=== PATIENT | female | born 1995 | race Caucasian/White ===

== ENCOUNTER 2025-02-24 10:03 | Emergency (ER) | payer OTHER, SELFPAY ==
--- NOTE | ~2025-02-24 | US_ITS ---
EXAMINATION: US OB <=14 wk fetus w TV DATE: 02/24/2025 13:18 INDICATION: Vaginal bleeding TECHNIQUE: Real-time transabdominal and transvaginal obstetric ultrasound. FINDINGS: No prior studies for comparison. The uterus measures 9.5 x 4.6 x 4.9 cm. There is an intrauterine gestational sac, with pole identified. The crown rump length measures 1 cm, which correlates with a estimated gestational age of 7 weeks 1 day. No heart motions detected. Ovaries within normal limits without significant solid or cystic mass. IMPRESSION: 1. Single intrauterine gestation with crown-rump length measuring 1 cm (approximately 7 weeks). Absence of detectable cardiac activity at this crown-rump length is diagnostic of failure by accepted sonographic criteria. Correlate with clinical history and serial beta hCG levels if needed. Reviewed, dictated and finalized at location O. IMPRESSION: 1. Single intrauterine gestation with crown-rump length measuring 1 cm (approxi mately 7 weeks). Absence of detectable cardiac activity at this crown-rum p length is diagnostic of failure by accepted sonographic criteria. C orrelate with clinical history and serial beta hCG levels if needed.
[2025-02-24 10:16] VITALS: BP 104/68; PULSE 90; RESP 16; TEMP 36.6; O2SAT 100
[2025-02-24 10:33] LABS: Hematocrit 41.9 % (37.0-47.0); Hemoglobin 13.7 g/dL (12.0-15.0); Immature Granulocyte Percent A 0.4 % (0-0.5); Lymphocytes Absolute Auto 1.72 K/mm3 (0.9-3.2); Mean Corpuscular HGB Conc 32.7 g/dl (32-36); Mean Corpuscular Hemoglobin 28.9 pg (26-34); Mean Corpuscular Volume 88.4 fl (80-100); Nucleated Red Blood Cells Absolute Auto 0.000 K/mm3 (0.0-0.012); Nucleated Red Blood Cells Perc 0.0 % (0.0-0.2); Platelet Count Result 299 k/mm3 (150-375); Red Blood Count 4.74 M/mm3 (4.2-5.4); White Blood Count 11.3 K/mm3 (4.5-10.0)
[2025-02-24 10:45] LABS: Alanine Aminotransferase 23 U/L (6-35); Albumin Level 4.8 g/dL (3.5-5.1); Alkaline Phosphatase 73 U/L (38-126); Anion Gap 8 mmol/L (4-12); Aspartate Amino Transferase 29 U/L (14-36); Bilirubin,Total 1.1 mg/dL (0.2-1.3); Blood Urea Nitrogen 7 mg/dL (7-17); Calcium 9.8 mg/dL (8.4-10.2); Carbon Dioxide 25 mmol/L (22-30); Chloride 105 mmol/L (98-107); Estimated CRCL calculation 137 ml/min; Estimated Glomerular Filt Rate > 60; Glucose 97 mg/dL (65-110); Potassium 4.8 mmol/L (3.4-5.0); Sodium 138 mmol/L (137-145); Total Protein 8.7 g/dL (6.3-8.2)
[2025-02-24 10:49] LABS: Add Urine Microscopic? YES; Appearance Urine Cloudy (Clear); Glucose Urine UA Negative (Negative); Leukocyte Esterase Ur 2+ LEU/UL (Negative); Need Manual Microscopic Reviewed; Nitrate Urine Negative (Negative); Non Pathogenic Casts 0-2; Specific Grav Ur 1.005 (1.001-1.035)
[2025-02-24 11:00] LABS: Beta HCG Quantitative 3701.80 mIU/ML
[2025-02-24 11:02] LABS: INR 0.9; Prothrombin Time 12.4 Seconds (11.1-14.7)
[2025-02-24 11:03] LABS: Partial Thromboplastin Time 26.5 Seconds (22.3-36.8)
--- NOTE | 2025-02-24 13:55 | ED.PREGNANCY ---
HPI - General Chief complaint: Vaginal Bleeding Stated complaint: 9 wks preg spotting Time Seen by Provider: 02/24/25 12:08 History of Present Illness HPI Narrative: This is a 30-year-old female a approximately 9 weeks by menstrual period that presents the ED for vaginal bleeding. Patient states that she began to have some spotting yesterday but this became heavier today prompting her to call her OB but they were unable to get her and so she came to the ED for further evaluation. Denies lightheadedness, dizziness, abdominal pain all, vaginal discharge, dysuria. Related Data Allergies Allergy/AdvReac Type Severity Reaction Status Date / Time No Known Allergies Allergy Verified 02/24/25 10:04 Review of Systems Review of Systems: Gen.: Denies fevers or chills Eyes: Denies eye pain or visual change ENT: Denies congestion Respiratory: Denies shortness of breath or cough CV: Denies chest pain or palpitations GI: Denies abdominal pain nausea, emesis or diarrhea denies burning, urgency, frequency or hematuria Musculoskeletal: Denies back pain or muscle pain Neuro: Denies numbness, tingling, weakness or focal weakness Skin: Denies rash Except as documented, all other systems reviewed and negative [facility] Social History Social History Smoking status: Never smoker Alcohol intake: never Exam Narrative: APPEARANCE: No acute distress, nontoxic, resting in bed EYES: EOMI HEENT: Normocephalic, atraumatic, OMM RESPIRATORY: No respiratory distress Clear to auscultation bilaterally with no rhonchi wheezing or rales. CARDIOVASCULAR: Regular rate and rhythm without murmurs rubs or gallops. ABDOMINAL: Soft, nontender, nondistended, no rebound or guarding MUSCULOSKELETAl: Moves all extremities. No clubbing, cyanosis or edema. NEURO: Awake and alert. Following commands, speech normal, no focal deficits SKIN:: Warm, dry. No rashes lesions or abrasions PSYCHIATRIC: Normal affect/mood, Course Vital Signs Vital signs: Vital Signs Temperature 97.9 F 02/24/25 10:16 Pulse Rate 90 02/24/25 10:16 Respiratory Rate 16 02/24/25 10:16 Blood Pressure 104/68 02/24/25 10:16 Pulse Oximetry 100 02/24/25 10:16 Oxygen Delivery Room Air 02/24/25 10:16 Temperature 97.9 F 02/24/25 10:16 Pulse Rate 90 02/24/25 10:16 Respiratory Rate 16 02/24/25 10:16 Blood Pressure 104/68 02/24/25 10:16 Pulse Oximetry 100 02/24/25 10:16 Oxygen Delivery Room Air 02/24/25 10:16 MDM - OB/Uterine Contractions MDM Narrative Medical decision making narrative: 30-year-old female approximately 9 weeks by last menstrual period that presented to the ED for vaginal bleeding. On initial evaluation, patient was somewhat tearful, afebrile, hemodynamically stable. Abdomen is soft nontender. HCG was elevated greater than 3000. UA consistent with a UTI. Transvaginal ultrasound revealed an intrauterine with no heart motion concerning for a missed . Patient has an appointment tomorrow with her OB which I encouraged her to go to. Patient will be given a prescription for Keflex for the UTI. Patient was agreeable to this plan. Given strict return precautions. Differential Diagnosis Differential diagnosis: Likely other (Miscarriage, vaginal bleeding in 1st trimester, UTI) Medical Records Attestation: I reviewed the patient's medical records. Lab Data Attestation: I reviewed the patient's lab results. 02/24/25 10:26 02/24/25 10:26 Labs: Lab Results 02/24/25 02/24/25 Range/Units 10:26 10:32 WBC 11.3 H (4.5-10.0) K/mm3 RBC 4.74 (4.2-5.4) M/mm3 Hgb 13.7 (12.0-15.0) g/dL Hct 41.9 (37.0-47.0) % MCV 88.4 (80-100) fl MCH 28.9 (26-34) pg MCHC 32.7 (32-36) g/dl RDW 12.1 (11.5-14.5) % Plt Count 299 (150-375) k/mm3 MPV 9.8 (7.4-10.4) fl Immature Gran % (Auto) 0.4 (0-0.5) % Neut % (Auto) 74.6 H (45.5-73.1) % Lymph % (Auto) 15.2 L (18.3-44.2) % Emmons % (Auto) 6.6 (2.6-8.5) % Eos % (Auto) 2.5 (0-4.4) % Baso % (Auto) 0.7 (0.2-1.2) % Lymph # (Auto) 1.72 (0.9-3.2) K/mm3 Emmons # (Auto) 0.7 H (0.1-0.6) K/mm3 Eos # (Auto) 0.3 (0-0.3) K/mm3 Baso # (Auto) 0.1 (0.0-0.1) K/mm3 Abs Immat Gran (auto) 0.04 H (0.00-0.031) K/mm3 Absolute Neuts (auto) 8.4 H (1.3-6.7) K/mm3 Absolute Nucleated RBC 0.000 (0.0-0.012) K/mm3 Nucleated RBC % 0.0 (0.0-0.2) % PT 12.4 (11.1-14.7) Seconds INR 0.9 APTT 26.5 (22.3-36.8) Seconds Sodium 138 (137-145) mmol/L Potassium 4.8 (3.4-5.0) mmol/L Chloride 105 (98-107) mmol/L Carbon Dioxide 25 (22-30) mmol/L Anion Gap 8 (4-12) mmol/L BUN 7 (7-17) mg/dL Creatinine 0.49 L (0.7-1.0) mg/dL Estim Creat Clear Calc 137 ml/min Estimated GFR > 60 (59 - ) Glucose 97 (65-110) mg/dL Calcium 9.8 (8.4-10.2) mg/dL Total Bilirubin 1.1 (0.2-1.3) mg/dL AST 29 (14-36) U/L ALT 23 (6-35) U/L Alkaline Phosphatase 73 (38-126) U/L Total Protein 8.7 H (6.3-8.2) g/dL Albumin 4.8 (3.5-5.1) g/dL Beta HCG, Quant 3701.80 mIU/ML Urine Color Light orange (Yellow) Urine Appearance Cloudy H (Clear) Urine pH 7.5 (5.0-9.0) Ur Specific [place] 1.005 (1.001-1.035) Urine Protein Trace (Negative) mg/dL Urine Glucose (UA) Negative (Negative) mg/dL Urine Ketones Negative (Negative) mg/dL Ur Blood (Man) 3+ H (Negative) Urine Nitrate Negative (Negative) Urine Bilirubin Negative (Negative) Urine Urobilinogen 0.2 (<2.0) mg/dL Add Ur Microanalysis Reviewed Leukocyte Esterase Rfl 2+ H (Negative) KATERYNA/UL Urine RBC 21-50 H (0-2) /hpf Urine WBC 11-20 H (0-3) /hpf Ur Squamous Epith Cells Few (Few) /hpf Urine Bacteria 2+ H /hpf Urine Casts 0-2 Blood Type A Positive Antibody Screen Negative Screen TNP Baby's Blood Type TNP Baby's CATALINA TNP Doses of RhIg Required 0 Imaging Data Radiologist's impression: Impressions Obstetrics Ultrasound 02/24/25 13:19 IMPRESSION: 1. Single intrauterine gestation with crown-rump length measuring 1 cm (approximately 7 weeks). Absence of detectable cardiac activity at this crown-rump length is diagnostic of failure by accepted sonographic criteria. Correlate with clinical history and serial beta hCG levels if needed. Discharge Plan Discharge Clinical Impression: Missed UTI (urinary tract infection) Qualifiers: Urinary tract infection type: acute cystitis Hematuria presence: without hematuria Qualified Code(s): N30.00 - Acute cystitis without hematuria Patient Disposition: Home Condition: Stable Instructions: Antibiotic Form, Miscarriage (ED) Additional Instructions: Follow-up with OB tomorrow as scheduled. Urinalysis showed evidence of a UTI, your given a prescription for Keflex to take this as prescribed. Return the ED for any new or worsening symptoms. Patient Language: Urugu[place] Prescriptions: New cephalexin 500 mg capsule 500 mg PO Q12H 7 Days Qty: 14 0RF Follow-up/Referrals: Remington,Xochitl Coats APRN [Primary Care Provider, Unknown]
--- OUTSIDE RECORDS SUMMARY | 2025-02-24 14:23 | XMS_ITS | Clinical Summary ---
Author Organization [facility] Address [address] [place] [id number] Care Team Providers Care Arranger Assembler Name Role Phone Xochitl Macedo Nora SCOTT Primary Care Provider [phone] Allergies Active Allergy Reactions Criticality Noted Date Comments Cat Dander Itching Low 04/20/2022 Cefazolin Rash,Swelling High 12/11/2022 Latex Redness 03/06/2023 Medications vitamin, low iron, ( VITAMIN WITH IRON) 27-0.8 MG tablet Take 1 tablet by mouth daily. Active Active Problems Problem Noted Date Diagnosed Date Choledocholithiasis 03/06/2023 Right upper quadrant pain 03/06/2023 Overview (03/07/2023): Added automatically from request for surgery [id number] Acute cholecystitis 03/06/2023 Overview (03/07/2023): Added automatically from request for surgery [id number] Calculus of gallbladder with cholecystitis without biliary obstruction, unspecified cholecystitis acuity 03/06/2023 Overview (03/07/2023): Added automatically from request for surgery [id number] Encounter for induction of labor ([facility]) 12/10 Migraine without aura and responsive to treatmen t 09/02/2015 Medication overuse headache 05/11/2015 Chronic infection of sinus 05/11/2015 Deviated nasal septum 05/11/2015 Hypertrophy of nasal turbinates 05/11/2015 Resolved Problems Problem Noted Date Diagnosed Date Resolved Date Cholesteatoma 01/07/2012 07/05/2023 Immunizations Immunization Administration Dates Next Due MMR (MMRII) 12/13/2022 Tdap (Generic) 12/13/2022 Family History Medical History Relation Comments Stroke Mother Diabetes Paternal Grandmother Asthma Sister Relation Status Comments Father Alive Mother Alive Paternal Grandmother Sister Alive Social History Tobacco Use Types Packs/Day Years Used Date Smoking Tobacco: Never Passive Smoke Exposure: Never Smokeless Tobacco: Never Tobacco Cessation:Counseling Given: No Alcohol Use Standard Drinks/Week Comments Not Currently 0 (1 standard drink = 0.6 oz pur e alcohol) Humiliation, Afraid, Rape, and Kick questionnair e Answer Date Recorded Within the last year, have y ou been afraid of your partner or ex-partner? No 03/06/2023 Within the last year, have y ou been humiliated or emotionally abused in other ways by your partner or ex-partner? No Within the last year, have y ou been kicked, hit, slapped, or otherwise physically hurt by your partner or ex-partner? No 03/06/2023 Within the last year, have y ou been raped or forced to have any kind of sexual activity by your partner or ex-partner? No 03/06/2023 Overall Financial Resource Strain (CARDIA) Answe r Date Recorded How hard is it for you to pa y for the very basics like food, housing, medical care, and heating? Not hard at all 03/06/2023 PHQ-2 Answer Date Recorded Patient Health Questionnaire-2 Score 0 10/23/2024 Hunger Vital Sign Answer Date Recorded Within the past 12 months, y ou worried that your food would run out before you got the money to buy more. Never true 03/06/20 Within the past 12 months, t he food you bought just didn't last and you didn't have money to get more. Never true 03/06/2023 PRAPARE - Transportation Answer Date Re corded In the past 12 months, has l ack of transportation kept you from medical appointments or from getting medications? No 02/16 In the past 12 months, has l ack of transportation kept you from meetings, work, or from getting things needed for daily living? No 03/06/2023 Housing Stability Vital Sign Answer Jose Armando e Recorded In the last 12 months, was t here a time when you were not able to pay the mortgage or rent on time? No 03/06/2023 In the last 12 months, how many places have you lived? 1 03/06/2023 In the last 12 months, was t here a time when you did not have a steady place to sleep or slept in a assisted (including now)? No 03/06/2023 Comments No Sex and Gender Information Value Date Recorded Sex Assigned at Not on file Legal Sex Female 6:00 PM CDT Gender Identity Not on file Sexual Orientation Not on file Last Filed Vital Signs Vital Sign Reading Time Taken Comments Blood Pressure 99/71 10/23/2024 4:01 PM CDT Pulse 89 10/23/2024 4:01 PM CDT Temperature 36.7 C (98 F) 10/23/2024 4:01 PM CDT Respiratory Rate 18 10/23/2024 4:01 PM CDT Oxygen Saturation 100% 10/23/2024 4:01 PM CDT Inhaled Oxygen Concentration - - Weight 72.6 kg (160 lb) 10/23/2024 4:01 PM CDT Height 165.1 cm (5' 5) 10/23/2024 4:01 PM CDT Body Mass Index 26.63 10/23/2024 4:01 PM CDT Plan of Treatment Health Maintenance Due Date Last Done Comments Cervical Cancer Screening Pa p Smear (Age 21 to 29) Every 3 Years 1996 Hepatitis C 02/20/2014 Hepatitis B Vaccines (1 of 3 - 19+ 3-dose series) 02/20/2015 HPV Vaccines (1 - 3-dose SCD M series) 02/20/2023 COVID-19 Vaccine (2023-2 5 season) 2025 Annual Physical 10/23/2025 10/23/2024 Cervical Cancer Screening 10/23/2025 Po stponed from 1996 (Going to Outside Clinic) DTaP, Tdap and Td Vaccines ( 2 - Td or Tdap) 12/13/2032 12/13/2022 PHQ-2 (Physician [place]) Completed 10/23/2024 Meningococcal B Vaccine Aged Out No l onger eligible based on patient's age to complete this topic Meningococcal Vaccine Aged Out No shobha paul eligible based on patient's age to complete this topic Pneumococcal Vaccine: Pediat rics (0 to 5 Years) and At-Risk Patients (6 to 49 Years) Aged Out No longer eligi ble based on patient's age to complete this topic RSV Immunizations Under 20 Months Aged Out No longer eligible based on patient's age to complete this topic Insurance [employer] Advance Directives * Full Code (Latest Code Status on File) Date Activated Date Inactivated Comments 03/06/2023 4:16 PM 03/10/2023 2:01 PM Care Teams Arranger Assembler Relationship Specialty Start Date End Date Xochitl Macedo APRN [id number] [id number] PCP - General NURSE PRACTITIONER 07/03/23
== END 2025-02-24 14:07 | disposition home or self-care (01) ==
PROVIDERS: Emergency Medicine; Emergency Provider Student in an Organized Health Care Education/Training Program; PCP Registered Nurse
DX: O02.1 Missed abortion (principal); O08.83 Urinary tract infection following an ectopic and molar pregnancy; N30.00 Acute cystitis without hematuria
CPT/HCPCS: 36415; 76801; 76817; 80053; 81001; 84702; 85025; 85461; 85610; 85730; 86850; 86900; 86901; 87086; 99284